=== PATIENT | female | born 1960 | race Caucasian/White ===

== ENCOUNTER → 2017-04-30 | Outpatient (CLI) | payer BC ==
[~2017-04-30] MED LIST: VICODIN 5/1 TAB 5/50 PO
--- NOTE | ~2017-04-30 | MY29 ---
[facility] A Service of [facility] RADIOLOGY TEXT RESULTS PATIENT: MAXIMINO RAMÍREZ LOCATION: [facility] : 64 UNIT #: [id number] AGE: [address]: Stephanie Patel MD SEX: F ORDER DR: [id number] [facility] [address] [place], [place] [address] [id number] O MR#: [id number] Acc #: [id number] NAME: MAXIMINO RAMÍREZ : 1960 SEX: F STUDY DATE/TIME: 04/30/2017 16:26 UNIT: [facility] ROOM: STUDY DESCRIPTION: MY J LUIS SCREENING W/ CAD BILAT Attending Physician: Stephanie Patel M.D. Referring Physician: Stephanie Patel M.D. Ordering Physician: Stephanie Patel M.D. Primary Care Physician: Stephanie Patel M.D. MEDICAL IMAGING REPORT This report is preliminary unless electronic signature is present EXAM Bilateral Digital Screening Mammogram with CAD INDICATION Breast cancer screening. 56-year-old asymptomatic female who reports mother with post menopausal breast cancer. COMPARISON April 28, 2016; February 13, 2013; January 08, 2012; December 23, 2010; September 20, 2009; December 16, 2007. FINDINGS There are scattered fibroglandular tissues. No suspicious findings are present. IMPRESSION No mammographic evidence of malignancy. Annual screening mammography and clinical breast exam are recommended. A result letter will be sent to the patient. Patients over the age of 40 are entered into a reminder system with target due date for the next mammogram. BIRADS: 1 Negative Dictated by... Francesco Wren M.D. THIS IS AN ELECTRONICALLY VERIFIED REPORT Francesco Wren M.D. at 05/03/2017 12:45 PM AIDE/renee [facility] A Service [facility] RADIOLOGY TEXT RESULTS PATIENT: MAXIMINO RAMÍREZ LOCATION: [facility] : 64 UNIT #: [id number] AGE: [address]: Stephanie Patel MD SEX: F ORDER DR: TD: 05/01/2017 02:51 JOB #: [id number] MEDICAL IMAGING REPORT Page 1 of 1 COPY
== END | disposition home or self-care (01) ==
LOC: CWCC 15:50
DX: Z12.31 Encounter for screening mammogram for malignant neoplasm of breast (principal); Z80.3 Family history of malignant neoplasm of breast
CPT/HCPCS: G0202